=== PATIENT | female | born 1955 | race Caucasian/White ===

== ENCOUNTER → 2017-11-03 | Outpatient (CLI) | payer BC ==
--- NOTE | 2017-11-03 16:35 | BD ---
EXAMINATION TYPE: Axial Bone Density DATE OF EXAM: 11/03/2017 COMPARISON: NONE CLINICAL HISTORY: Height: 60 Weight: 180.1 FRAX RISK QUESTIONS: Alcohol (3 or more units per day): no Family History (Parent hip fracture): no Glucocorticoids (More than 3mos): no (Ex: prednisone, prednisolone, methylprednisolone, dexamethasone, and hydrocortisone). History of Fracture in Adulthood: no Secondary Osteoporosis: 1. Type 1 Diabetes: no 2. Hyperthyroidism: no 3. Menopause before 45: no 4. Malnutrition: no 5. Chronic liver disease: no Rheumatoid Arthritis: no Current Tobacco Use: no RISK FACTORS HISTORY OF: Family History of Osteoporosis: no Active: yes Diet low in dairy products/other sources of calcium: yes Postmenopausal woman: age 48 Lost more than 2 inches in height since high school: no MEDICATIONS: metformin, januvia, lipitor Additional History: EXAM MEASUREMENTS: Bone mineral densitometry was performed using the [employer]. Bone mineral density as measured about the Lumbar spine is: ----- L1-L4(G/cm2): 1.210 T Score Values are as follows: ----- L2: 0.7 ----- L3: 0.4 ----- L4: 0.3 ----- L1-L4: 0.3 Bone mineral density : baseline Bone mineral density about the R hip (g/cm2): 1.098 Bone mineral density about the L hip (g/cm2): 0.986 T Score values are as follows: -----R Neck: 0.4 -----L Neck: -0.4 -----R Total: 1.6 -----L Total: 1.3 Bone mineral density : baseline IMPRESSION: Normal (Values between +1 and -1 indicate normal bone mass). Consider repeating this study in 5 year s or sooner if there is some new clinical indication. NOTE: T-SCORE=SD OF THE YOUNG ADULT MEAN.
--- NOTE | 2017-11-05 12:53 | MM ---
Reason for exam: screening (asymptomatic). Last mammogram was performed 20 years and 10 months ago. History: Patient is postmenopausal. Physical Findings: A clinical breast exam by your physician is recommended on an annual basis and results should be correlated with mammographic findings. MG Screening Mammo w CAD Bilateral CC and MLO view(s) were taken. No prior studies available for comparison. The breast tissue is heterogeneously dense. This may lower the sensitivity of mammography. Two grouped calcifications left breast. Multiple nodular asymmetries right breast. No priors available for comparison. ASSESSMENT: Incomplete: need additional imaging evaluation, BI-RAD 0 RECOMMENDATION: Special view mammogram of both breasts. Ultrasound of the right breast. [facility] will attempt to contact patient to return for supplemental views and ultrasound.
== END | disposition home or self-care (01) ==
LOC: RADMAMWWP 13:40
PROVIDERS: ATTEND Family Medicine
DX: Z12.31 Encounter for screening mammogram for malignant neoplasm of breast (principal); Z78.0 Asymptomatic menopausal state
CPT/HCPCS: 77067; 77080

== ENCOUNTER → 2017-11-06 | Outpatient (CLI) | payer BC ==
--- NOTE | 2017-11-09 11:38 | MM ---
Reason for exam: additional evaluation requested from abnormal screening. Last mammogram was performed less than 1 month ago. History: Patient is postmenopausal. Physical Findings: Nurse did not find any significant physical abnormalities on exam. MG Work Up Mamm w CAD BILAT Bilateral LM view(s) were taken. Spot compression CC and spot compression LM view(s) were taken of the right breast. CC with magnification and ML with magnification view(s) were taken of the left breast. Prior study comparison: November 03, 2017, bilateral MG screening mammo w CAD. January 09, 1997, bilateral special view mammogram. There are two persistent suspicious grouped heterogeneous calcifications in the left breast that do not layer on lateral view. Right areas do not go completely away on spot CC view but not well seen on lateral view. These results were verbally communicated with the patient and result sheet given to the patient on 11/06/17. ASSESSMENT: Suspicious, BI-RAD 4 Probably benign, BI-RAD 3 finding in the right breast. Suspicious, BI-RAD 4 abnormality in the left breast. RECOMMENDATION: Ultrasound of the right breast. Stereotactic core biopsy of the left breast. (2 sites) Called Dr. Patterson with mammographic findings and has scheduled an appointment for the patient for 11/27/17 at 11:[address] Jerry. Biopsy scheduled for 12/03/17 at 8:00. PRELIMINARY REPORT CALLED AND FAXED TO DR. JERRY ON 11/09/17.
--- NOTE | 2017-11-09 11:39 | USB ---
Reason for exam: additional evaluation requested from abnormal screening. History: Patient is postmenopausal. US Breast Workup RT Right complete breast ultrasound includes all four quadrants, the retroareolar region and axilla. Finding demonstrates a 0.5 x 0.3 x 0.4cm oval lesion too small to characterize at 7 o'clock, a 0.5 x 0.4 x 0.5cm oval, cystic lesion at 8 o'clock and a 0.5 x 0.3 x 0.5cm oval, cystic lesion at 10 o'clock. These results were verbally communicated with the patient and result sheet given to the patient on 11/06/17. ASSESSMENT: Probably benign, BI-RAD 3 RECOMMENDATION: Follow-up diagnostic mammogram and ultrasound of the right breast in 6 months.
== END | disposition home or self-care (01) ==
LOC: RADMAMWWP 13:20
PROVIDERS: ATTEND Family Medicine
DX: R92.8 Other abnormal and inconclusive findings on diagnostic imaging of breast (principal)
CPT/HCPCS: 77066

== ENCOUNTER → 2017-11-27 | Outpatient (CLI) | payer BC ==
[2017-11-27 14:06] LABS: HCT 48.7 % (34.0-46.0); HGB 15.7 gm/dL (11.4-16.0); MCH 27.3 pg (25.0-35.0); MCHC 32.2 g/dL (31.0-37.0); MCV 84.8 fL (80.0-100.0); Mean Platelet Volume 10.1; RBC 5.74 m/uL (3.80-5.40); RDW 13.3 % (11.5-15.5); WBC 7.6 k/uL (3.8-10.6)
[2017-11-27 14:12] LABS: INR 1.1 (<1.2); Prothrombin Time 10.8 sec (9.0-12.0)
[2017-11-27 14:43] LABS: Platelet Count 27 k/uL (150-450)
== END | disposition home or self-care (01) ==
LOC: LABWHC1 12:28
PROVIDERS: ATTEND Surgery
DX: R23.3 Spontaneous ecchymoses (principal)
CPT/HCPCS: 36415; 85027; 85610

== ENCOUNTER → 2017-11-27 | Outpatient (CLI) | payer BC ==
[2017-11-27 11:31] VITALS: BP 118/73; PULSE 90; RESP 14; TEMP 98; BMI 34.3
--- NOTE | 2017-11-27 12:00 | P.GSHP ---
History of Present Illness H&P Date: 11/27/17 The patient is a 62-year-old white female who had a routine screening mammogram performed on 94. On that study to group calcifications were noted in the left breast and multiple nodular asymmetric areas were noted in the right breast. She was recommended to have bilateral additional views and these were performed on 97. This was revealed to persistent suspicious grouped heterogeneous calcifications in the left breast which did not layer on the lateral view. In the right breast the areas did not go completely away on spot CC view but were not set well seen on the lateral view, she was therefore recommended to undergo a right breast ultrasound. She underwent a right breast ultrasound on 97. This was felt to be most likely benign and a follow-up diagnostic mammogram and ultrasound of the right breast in 6 months was recommended. However it was recommended she undergo stereotactic core biopsy of the area of concern in the left breast in two sites. The patient does not feel anything of concern in either breast. She has no nipple discharge or changes. She has no history of any trauma to the breast nor any infection in the breast. Family History: father: prostate cancer mother: heart disease Hormonal History: menarche: 6 : 2, 2 children, first at 17, breast fed: yes menopause: 48 BCP: 6 months hormones: none Past surgical history 1. Tonsillectomy 2. tubaligation Past medical history 1. Environmental asthma 2. Diabetic controlled by diet 3. High cholesterol Social History: smoke: none alcohol:none drugs: none - Constitutional Constitutional: Denies chills, Denies fever - EENT Eyes: denies blurred vision, denies pain Ears: deny: decreased hearing, tinnitus Ears, nose, mouth and throat: Denies headache, Denies sore throat - Breasts Breasts: bilateral: as per HPI - Cardiovascular Cardiovascular: Denies chest pain, Denies shortness of breath - Respiratory Respiratory: Denies cough, Denies 7 - Gastrointestinal Comment: GI bleed in 2009 was taking aspirin Gastrointestinal: Denies abdominal pain, Denies diarrhea, Denies nausea, Denies vomiting - Genitourinary (Female) Genitourinary: Denies dysuria, Denies hematuria - Menstruation Menstruation: Reports postmenopausal - Musculoskeletal Musculoskeletal: Denies myalgias - Integumentary Comment: bruising in the past Integumentary: Denies pruritus, Denies rash - Neurological Comment: neuropathy in feet form diabetes Neurological: Denies numbness, Denies weakness - Psychiatric Psychiatric: Denies anxiety, Denies depression - Endocrine Comment: diabetic - Hematologic/Lymphatic Comment: none - Allergic/Immunologic Allergic/Immunologic: Reports seasonal allergies Past Medical History Past Medical History: Asthma, Diabetes Mellitus, Hyperlipidemia History of Any Multi-Drug Resistant Organisms: None Reported Past Surgical History: Tonsillectomy, Tubal Ligation Smoking Status: Never smoker - Past Family History Father Family Medical History: Cancer Additional Family Medical History / Comment(s): prostate Mother Family Medical History: Myocardial Infarction ([place]) Medications and Allergies Home Medications Medication Instructions Recorded Confirmed Type Albuterol Inhaler [Ventolin Hfa 90 mcg INHALATION DIRECTED PRN 11/17/1711/27 History Inhaler] Atorvastatin [Lipitor] 40 mg PO HS 11/17/17 11/27/17 History Fluticasone/Salmeterol [Advair 1 inhalation PO BID 11/17/17 11/27/17 History 250-50 Diskus] metFORMIN HCL 1,000 mg PO BID 11/17/17 11/27/17 History sitaGLIPtin [Januvia] 100 mg PO DAILY 11/17/17 11/27/17 History Allergies Allergy/AdvReac Type Severity Reaction Status Date / Time Penicillins Allergy Severe Rash/Hives Verified 11/27/17 11:18 codeine AdvReac Severe Unknown Verified 11/27/17 11:18 Surgical - Exam Vital Signs Temp Pulse Resp BP Pulse Ox 98.0 F 90 14 118/73 96 11/27/17 11:25 11/27/17 11:25 11/27/17 11:25 11/27/17 11:25 11/27/17 11:25 BMI 34.4 - General obese - Eyes normal ocular movement - ENT no hearing loss, no congestion - Neck no masses, trachea midline - Respiratory normal respiratory effort, clear to auscultation - Cardiovascular Rhythm: regular Heart Sounds: normal: S1, S2 - Abdomen Abdomen: soft, non tender, no guarding, no rigid, no rebound - Integumentary Small nevus left aerolar area - Neurologic no disoriented, no combative - Musculoskeletal normal gait, normal posture - Psychiatric oriented to time, oriented to person, oriented to place, speech is normal, memory intact Breast examination: Right breast: Multi-positional exam no dominant masses or nodules of concern Right axilla: No adenopathy of concern Left breast: small nevus which is dark in the inner area of the aerola approximately 7:00 Multi-positional exam no dominant masses or nodules of concern Left axilla: No adenopathy of concern Results Mammogram and ultrasound reports reviewed Assessment and Plan Assessment: Impression: 1. Radiographic abnormality right and left breast 2. Nevus left periareolar area 3. Diabetes 4. Asthma 5. High cholesterol 6. History of easy bruising Plan: 1. Right breast repeat mammogram and ultrasound in 6 months time 2. Left breast stereotactic core biopsy of 2 areas of concern in the left breast 3. Medical management of medical problems 4. Secondary to the history of easy bruising I will obtain a CBC, PT, and INR Risk and benefits of stereotactic core biopsy were discussed with the patient. The risks include bleeding infection reaction to the anesthetic or the possibility that we would not sample the correct area. The patient understands and wishes to proceed. Alternatives would include watchful waiting and/or open biopsy which is not recommended at this time. Cc: Dr. Baljinder Patterson
== END | disposition home or self-care (01) ==
LOC: WWCWWP 11:10
PROVIDERS: ATTEND Surgery
DX: Z53.9 Procedure and treatment not carried out, unspecified reason (principal)

== ENCOUNTER → 2017-12-25 | Day surgery (SDC) | payer BC ==
[2017-12-25 07:27] VITALS: RESP 16; TEMP 98
--- NOTE | 2017-12-25 08:47 | P.OP ---
Date of Procedure: 12/25/17 Preoperative Diagnosis: Mammographic abnormality microcalcifications left breast, at two sites Postoperative Diagnosis: Same Procedure(s) Performed: Stereotactic core biopsy two sites in the left breast lesion Anesthesia: local Surgeon: Priti Jerry Estimated Blood Loss (ml): 1 Pathology: other (breast tissue) Condition: stable Disposition: same day Indications for Procedure: Suspicious microcalcifications left breast upper outer quadrant area site A Operative Findings: Microcalcifications in specimen Description of Procedure: The patient is a 62-year-old white female who on a mammogram was noted to have 2 areas of microcalcification of concern in the left breast. Site a is the first area of concern and this is located in the upper outer quadrant area. The second area of concern is in the more medial inferior area of the breast. The patient on physical examination had no dominant masses or nodules of concern in the breast a multi-positional exam. The patient was recommended to undergo stereotactic core biopsy of 2 areas of microcalcifications in the left breast. Site A is in the upper outer quadrant area and site B is in the more inferior medial breast. The patient was taken to the stereotactic core room in the area of concern in the left breast in the upper outer quadrant region was addressed initially. This is site A. The patient was placed on the low rad table and the area was identified on a pulp house supervisor film. Following this the stereo pair was identified. The approach to target this area was cranial caudal from above. The breast was prepped using Betadine. 10 mL of 1% lidocaine was used to anesthetize the area of concern. A 9-gauge vacuum-assisted rotating core biopsy needle was utilized. The needle was driven to the correct coordinates and pre-and post- fire films were obtained. Slight correction was made in the X axis for the location of the needle in the post fire films. Approximately 6 cores were obtained. Radiograph of the specimen revealed that the area of concern had been sampled. A top hat secure gino marker was placed. Location was confirmed radiographically. Site B was then approached. The approach used was a cranial caudal from below. Site B which was in the left breast in the more medial lower breast was approached from a cranial caudal from below approach. The lesion was identified on the pulp house supervisor film. Following this stereo pair was obtained. The lesion was targeted. The breast was prepped using Betadine. 10 mL of 1% lidocaine was used to anesthetize the breast. The needle was driven to the correct coordinates. The needle was a 9-gauge vacuum-assisted rotating core biopsy needle. A prefire film was obtained. Post-fire film was then obtained. 3 core biopsies were obtained from the 12 o'clock position. Radiograph of the specimen revealed the calcifications of concern had been sampled. A tri- gino marker was placed. The patient tolerated the procedure in stable condition with no immediate complications. The specimens were sent to pathology clearly labeled site a which was in the upper outer aspect of the breast, and site B which was in the more medial inferior aspect of the breast. The patient will follow-up with Dr. Patterson in 1 week.
[2017-12-25 09:02] VITALS: BP 139/83; PULSE 106
--- NOTE | 2017-12-25 09:58 | MM ---
Stereotactic core biopsy left breast. HISTORY: Microcalcifications 2 sites. The calcifications in question within the left breast were targeted by the undersigned. The examination was performed by the surgeon. Specimen radiograph demonstrates numerous calcifications within the specimens submitted. Post procedural mammogram demonstrates appropriate deployment of radiopaque clip markers. The patient tolerated the procedure well and left the department in stable condition. Pathology results are pending. IMPRESSION: Successful stereotactic core biopsy 2 sites left breast with pathology results pending. Pathology Results: Benign A. LEFT BREAST SITE A, NEEDLE CORE BIOPSIES: Minute fibroadenoma fragments with foci of calcification. B. LEFT BREAST SITE B, NEEDLE CORE BIOPSIES: Minute fibroadenoma fragments with foci of calcification. Recommendation Follow up mammogram of the left breast in 6 months. MTDD
--- NOTE | 2017-12-29 13:58 | MM ---
MG Stereo VAD BX LT Radiologist: Anastacio Calixto M.D. Radiologis Surgeon: Catherine Jerry M.D. Stereotactic core biopsy left breast. HISTORY: Microcalcifications 2 sites. The calcifications in question within the left breast were targeted by the undersigned. The examination was performed by the surgeon. Specimen radiograph demonstrates numerous calcifications within the specimens submitted. Post procedural mammogram demonstrates appropriate deployment of radiopaque clip markers. The patient tolerated the procedure well and left the department in stable condition. Pathology results are pending. IMPRESSION: Successful stereotactic core biopsy 2 sites left breast with pathology results pending. Pathology Results: Benign A. LEFT BREAST SITE A, NEEDLE CORE BIOPSIES: Minute fibroadenoma fragments with foci of calcification. B. LEFT BREAST SITE B, NEEDLE CORE BIOPSIES: Minute fibroadenoma fragments with foci of calcification. RECOMMENDATION: Follow-up diagnostic mammogram of the left breast in 6 months. MTDD
== END ==
LOC: RADMAMWWP 07:03
PROVIDERS: ATTEND Surgery
DX: D24.2 Benign neoplasm of left breast (principal); R92.1 Mammographic calcification found on diagnostic imaging of breast; R92.8 Other abnormal and inconclusive findings on diagnostic imaging of breast; Z88.5 Allergy status to narcotic agent; Z88.0 Allergy status to penicillin; Z88.8 Allergy status to other drugs, medicaments and biological substances
CPT/HCPCS: 88305; 19081; 19082; A4648; J2001

== ENCOUNTER → 2017-12-31 | Outpatient (CLI) | payer BC ==
[2017-12-31 13:32] VITALS: BP 129/80; PULSE 92; RESP 18; TEMP 98.1; BMI 33.7
--- NOTE | 2017-12-31 13:39 | P.PN ---
Subjective Progress Note Date: 12/31/17 The patient is a 62-year-old white female status post stereotactic core biopsy of 2 areas of concern in the left breast. Both areas revealed fibroadenoma fragments with foci of calcification. The patient has some slight ecchymosis at the site of the biopsies and had some reaction to the tape otherwise no complaints. Objective - Vital Signs Vital signs: Vital Signs Temp 98.1 F 12/31/17 13:26 Pulse 92 12/31/17 13:26 Resp 18 12/31/17 13:26 BP 129/80 12/31/17 13:26 Pulse Ox 95 12/31/17 13:26 Intake & Output 12/30/17 12/31/17 12/31/17 18:59 06:59 18:59 Weight 78.471 kg - Constitutional General appearance: Present: obese - EENT Eyes: Present: EOMI ENT: Present: hearing grossly normal - Respiratory Respiratory: bilateral: CTA - Cardiovascular Rhythm: regular Heart sounds: normal: S1, S2 - Gastrointestinal General gastrointestinal: Present: soft - Integumentary Integumentary Comment(s): Examination of the left breast reveals some mild ecchymosis of both biopsy sites There is no evidence of any infection Small hematoma at the upper biopsy site which is less than a centimeter in size Assessment and Plan Assessment: Impression: 1. 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 Close surveillance of mammographic finding in the right breast with 6 month mammogram Plan: 1. Bilateral breast mammogram and physician exam in 6 months time Cc: Dr. Baljinder Patterson
== END | disposition home or self-care (01) ==
LOC: WWCWWP 12:42
PROVIDERS: ATTEND Surgery
DX: Z53.9 Procedure and treatment not carried out, unspecified reason (principal)

== ENCOUNTER → 2018-03-12 | Outpatient (CLI) | payer BC, MEDICARE ==
--- NOTE | 2018-03-12 13:21 | XR ---
EXAMINATION TYPE: XR chest 2V DATE OF EXAM: 03/12/2018 COMPARISON: NONE HISTORY: Persistent cough, pulmonary edema TECHNIQUE: Frontal and lateral views of the chest are obtained. FINDINGS: Patient is rotated. There is bronchial wall thickening. There is no focal air space opacity , pleural effusion, or pneumothorax seen. The cardiac silhouette size is within normal limits. The osseous structures are intact. IMPRESSION: Correlate for bronchitis, reactive airways disease, follow-up as indicated.
== END ==
LOC: RADXRMAIN 10:27
PROVIDERS: ATTEND Family Medicine
DX: R06.00 Dyspnea, unspecified (principal)
CPT/HCPCS: 71046

== ENCOUNTER → 2018-03-23 | Outpatient (CLI) | payer MEDICARE ==
--- NOTE | 2018-03-23 09:56 | ECHOF ---
Referral Reason:R00.2 Palpitations MEASUREMENTS -------- HEIGHT: 152.4 cm WEIGHT: 83.9 kg BP: RVIDd: 2.5 cm (< 3.3) IVSd: 0.9 cm (0.6 - 1.1) LVIDd: 4.3 cm (3.9 - 5.3) LVPWd: 1.1 cm (0.6 - 1.1) IVSs: 1.3 cm LVIDs: 3.0 cm LVPWs: 1.4 cm LA Diam: 4.0 cm (2.7 - 3.8) LAESV Index (A-L): 28.91 ml/m Ao Diam: 2.7 cm (2.0 - 3.7) AV Cusp: 1.9 cm (1.5 - 2.6) LA Diam: 3.8 cm (2.7 - 3.8) MV EXCURSION: 18.395 mm (> 18.000) MV EF SLOPE: 113 mm/s (70 - 150) EPSS: 0.3 cm MV E Helio: 0.52 m/s MV DecT: 118 ms MV A Helio: 0.63 m/s MV E/A Ratio: 0.83 RAP: 5.00 mmHg RVSP: 15.84 mmHg FINDINGS -------- Sinus rhythm. This was a technically adequate study. LV size, wall thickness and systolic function are normal, with an EF greater than 55%. The left shaka tricular size is normal. The right ventricle is normal in size. The left atrial size is normal. The right atrial size is normal. The aortic valve is trileaflet, and appears structurally normal. No aortic stenosis or regurgitation. Mild mitral annular calcification present. Mild mitral regurgitation is present. Mild tricuspid regurgitation present. There is no evidence of pulmonary hypertension. The right v entricular systolic pressure, as measured by Doppler, is 15.84mmHg. There is no pulmonic regurgitation present. The aortic root size is normal. There is no pericardial effusion. CONCLUSIONS -------- 1. LV size, wall thickness and systolic function are normal, with an EF greater than 55%. 2. The left ventricular size is normal. 3. The right ventricle is normal in size. 4. The left atrial size is normal. 5. The right atrial size is normal. 6. The aortic valve is trileaflet, and appears structurally normal. No aortic stenosis or regurgitati on. 7. Mild mitral annular calcification present. 8. Mild mitral regurgitation is present. 9. Mild tricuspid regurgitation present. 10. There is no evidence of pulmonary hypertension. 11. The right ventricular systolic pressure, as measured by Doppler, is 15.84mmHg. 12. There is no pulmonic regurgitation present. 13. The aortic root size is normal. 14. There is no pericardial effusion. [employer] PROFESSOR: Evelyn Jaime RDCS
--- NOTE | 2018-03-23 11:41 | ECHOS ---
STRESS ECHOCARDIOGRAM INDICATIONS: Palpitations. MEDICATIONS: Metformin, Atorvastatin, Januvia. BASELINE HEART RATE: 83 BASELINE BLOOD PRESSURE: 124/61 MAXIMUM HEART RATE: 162 MAXIMUM BLOOD PRESSURE: 190/80 85% MPHR: 132 100% MPHR: 155 METS: 5.8 MAXIMUM STAGE REACHED: I TOTAL EXERCISE TIME: 4:19 CLINICAL INFORMATION: Baseline heart rate 83 beats per minute. Baseline blood pressure 124/61 mmHg. Baseline 12-lead ECG shows sinus rhythm with nonspecific ST-T abnormalities of 0.5 mm in the lateral precordial leads. The patient exercised on a Carlos protocol for only 4 minutes 19 seconds achieving a peak heart rate of 162 beats per minute. No chest pain noted. Normal blood pressure response and there was an upsloping 1-1.[address] depression at peak exercise. Occasional PVCs noted. Baseline 2D echo images were suboptimal, therefore Definity contrast was used to delineate the endocardial borders. There was augmentation of overall LV contractility without developing any wall motion abnormalities. At recovery, regional global LV systolic function remained normal. IMPRESSION: 1. Low exercise capacity. 2. No borderline ECG abnormalities. 3. No wall motion abnormalities noted on the stress echo images. MMODL / IJN: [id number] /
== END | disposition home or self-care (01) ==
LOC: RADECHMAIN 08:22
PROVIDERS: ATTEND Family Medicine
DX: I08.1 Rheumatic disorders of both mitral and tricuspid valves (principal)
CPT/HCPCS: 93225; 93226; 93306; C8930; Q9950; 93351

== ENCOUNTER 2018-07-06 06:36 | Day surgery (SDC) | payer BC, MEDICARE ==
[2018-07-02 10:59] VITALS: BMI 37.1
[~2018-07-06 06:36] MED LIST: LACTATED RINGERS 1,000 ML IV SCH
[2018-07-06 06:59] VITALS: RESP 18; TEMP 98.1
[2018-07-06] MEDS ORDERED: LACTATED RINGERS 1,000 ML IV ONE (06:59)
[2018-07-06] MEDS ORDERED: LIDOCAINE 1% 20 ML VIAL (10MG/ML) FOR IV START INTRADERMA ONE (06:59)
[2018-07-06 07:09] LABS: Glucose,Whole Blood 171 mg/dL (75-99)
[2018-07-06] MEDS ORDERED: PROPOFOL 10 MG/ML 20 ML VIAL IV ONE (07:55)
[2018-07-06 08:51] VITALS: BP 148/75; PULSE 98
--- NOTE | 2018-07-06 10:54 | PCN ---
PROCEDURE NOTE DATE OF SERVICE: 07/06/2018 PROCEDURE: Attempted procedure is bone marrow aspirate and biopsy. DESCRIPTION OF PROCEDURE: After obtaining consent from the patient, anesthesia was performed by anesthesia team. However, the patient had hyperreactive airway, so the procedure was canceled and the patient woke up and she was doing well and she was deferred at a later time. will be done under local. MMODL / IJN: [id number] /
== END 2018-07-06 09:05 | disposition home or self-care (01) ==
LOC: OR 06:36
PROVIDERS: ATTEND Internal Medicine Hematology & Oncology
DX: D69.6 Thrombocytopenia, unspecified (principal); Z53.09 Procedure and treatment not carried out because of other contraindication; J45.998 Other asthma; E78.5 Hyperlipidemia, unspecified; E11.3599 Type 2 diabetes mellitus with proliferative diabetic retinopathy without macular edema, unspecified eye; E03.9 Hypothyroidism, unspecified; Z98.51 Tubal ligation status; Z98.890 Other specified postprocedural states; Z80.42 Family history of malignant neoplasm of prostate; Z88.5 Allergy status to narcotic agent; Z88.0 Allergy status to penicillin; Z91.048 Other nonmedicinal substance allergy status; Z79.84 Long term (current) use of oral hypoglycemic drugs; Z79.890 Hormone replacement therapy; Z79.899 Other long term (current) drug therapy
CPT/HCPCS: 38221; J2704

== ENCOUNTER → 2019-04-08 | Outpatient (CLI) | payer MEDICARE ==
--- NOTE | 2019-04-12 10:20 | MM ---
Reason for exam: screening (asymptomatic). Last mammogram was performed 1 year and 5 months ago. History: Patient is postmenopausal. Benign MG stereo VAD BX addl LT of the left breast, December 25, 2017. Benign MG stereo VAD BX LT of the left breast, December 25, 2017. Physical Findings: A clinical breast exam by your physician is recommended on an annual basis and results should be correlated with mammographic findings. MG 3D Screening Mammo W/Cad Bilateral CC and MLO view(s) were taken. Prior study comparison: November 06, 2017, bilateral MG work up mamm w CAD BILAT. November 03, 2017, bilateral MG screening mammo w CAD. The breast tissue is heterogeneously dense. This may lower the sensitivity of mammography. Finding: There are increased, fine, grouped/clustered calcifications in the right breast. Previous mammotome biopsy in the left breast. New finding since November 06, 2017 and November 03, 2017. ASSESSMENT: Incomplete: need additional imaging evaluation, BI-RAD 0 RECOMMENDATION: Special view mammogram of the right breast. If lesion persists on supplemental views, image directed ultrasound is recommended. [facility] will attempt to contact patient to return for supplemental views and ultrasound if indicated.
== END | disposition home or self-care (01) ==
LOC: RADMAMWWP 15:37
PROVIDERS: ATTEND Surgery
DX: Z12.31 Encounter for screening mammogram for malignant neoplasm of breast (principal)
CPT/HCPCS: 77063; 77067

== ENCOUNTER → 2019-04-21 | Outpatient (CLI) | payer MEDICARE ==
--- NOTE | 2019-04-26 11:45 | MM ---
Reason for exam: additional evaluation requested from abnormal screening. Last mammogram was performed less than 1 month ago. History: Patient is postmenopausal. Benign MG stereo VAD BX addl LT of the left breast, December 25, 2017. Benign MG stereo VAD BX LT of the left breast, December 25, 2017. Physical Findings: Nurse did not find any significant physical abnormalities on exam. MG 3D Work Up W/Cad RT CC with magnification, ML with magnification, and ML view(s) were taken of the right breast. Prior study comparison: April 08, 2019, bilateral MG 3d screening mammo w/cad. November 06, 2017, bilateral MG work up mamm w CAD BILAT. The breast tissue is heterogeneously dense. This may lower the sensitivity of mammography. There are increased suspicious grouped, round, heterogeneous calcification in the right breast upper outer quadrant middle position. This finding is changed when compared with previous exams. These results were verbally communicated with the patient and result sheet given to the patient on 04/21/19. ASSESSMENT: Suspicious, BI-RAD 4 RECOMMENDATION: Stereotactic core biopsy of the right breast. Called office with mammographic findings and has scheduled an appointment for the patient for 04/28/19 at 1:[address] Jerry. PRELIMINARY REPORT CALLED AND FAXED TO DR. JERRY ON 04/21/19.
== END | disposition home or self-care (01) ==
LOC: RADMAMWWP 10:23
PROVIDERS: ATTEND Surgery
DX: R92.8 Other abnormal and inconclusive findings on diagnostic imaging of breast (principal)
CPT/HCPCS: 77065; G0279; 77061

== ENCOUNTER → 2019-11-10 | Outpatient (CLI) | payer MEDICARE ==
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
== END | disposition home or self-care (01) ==
LOC: RADUSWWP 09:49
PROVIDERS: ATTEND Family Medicine
DX: R60.0 Localized edema (principal)
CPT/HCPCS: 93970

== ENCOUNTER → 2020-09-21 | Outpatient (CLI) | payer MEDICARE ==
[2020-09-21 17:27] LABS: Basophils # (A) 0.03 X 10*3/uL (0.00-0.10); Basophils % (A) 0.3 %; Eosinophils # (A) 0.02 X 10*3/uL (0.04-0.35); Eosinophils % (A) 0.2 %; HCT 44.1 % (37.2-46.3); HGB 14.2 g/dL (12.0-15.0); Lymphocytes % (A) 17.3 %; MCH 27.6 pg (27.0-32.0); MCHC 32.2 g/dL (32.0-37.0); MCV 85.6 fL (80.0-97.0); Monocytes % (A) 6.9 %; Neutrophils % (A) 74.3 %; Platelet Count 51 X 10*3/uL (140-440); RBC 5.15 X 10*6/uL (4.10-5.20); RDW 13.9 % (11.5-14.5); WBC 11.57 X 10*3/uL (4.50-10.00)
[2020-09-21 21:17] LABS: African American GFR (CKD) 88.4 (60.0-200.0); Albumin 4.7 g/dL (3.80-4.90); Albumin/Globulin Ratio 1.62 (1.60-3.17); Anion Gap 14.4 mmol/L (4.00-12.00); BUN/Creat Ratio 27.5 Ratio (12.00-20.00); Calcium 9.6 mg/dL (8.7-10.3); Carbon Dioxide 20.6 mmol/L (21.6-31.8); Chol/HDL Ratio 3.72; Globulin 2.9 g/dL (1.6-3.3); LDL Cholesterol,Calculated 141.2 mg/dL (0.0-131.0); Non-African American GFR(CKD) 76.3 (60.0-200.0); Potassium 4.3 mmol/L (3.5-5.5); Total Bilirubin 0.6 mg/dL (0.2-1.2); Total Protein 7.6 g/dL (6.2-8.2); VLDL Calculation 35.8 mg/dL (5.00-40.00)
== END | disposition home or self-care (01) ==
LOC: LABWHC1 07:38
PROVIDERS: ATTEND Family Medicine
DX: E11.9 Type 2 diabetes mellitus without complications (principal); D69.6 Thrombocytopenia, unspecified
CPT/HCPCS: 36415; 80053; 80061; 85025

== ENCOUNTER → 2022-06-25 | Outpatient (CLI) | payer MEDICARE ==
[2022-06-25 09:57] LABS: Anisocytosis Slight; Basophils % (A) 0 %; Eosinophils # (A) 0.2 k/uL (0-0.7); Eosinophils % (A) 3 %; HCT 34.1 % (34.0-46.0); HGB 11.1 gm/dL (11.4-16.0); Lymphocytes # (A) 0.9 k/uL (1.0-4.8); Lymphocytes % (A) 17 %; MCH 27.7 pg (25.0-35.0); MCHC 32.5 g/dL (31.0-37.0); MCV 85.3 fL (80.0-100.0); Mean Platelet Volume 9.1; Monocytes # (A) 0.3 k/uL (0-1.0); Monocytes % (A) 7 %; Neutrophils # (A) 3.6 k/uL (1.3-7.7); Neutrophils % (A) 70 %; RDW 16.5 % (11.5-15.5); WBC 5.2 k/uL (3.8-10.6)
[2022-06-25 14:54] LABS: Platelet Count 27 k/uL (150-450)
== END | disposition home or self-care (01) ==
LOC: LABWHC1 08:26
PROVIDERS: ATTEND Family Medicine
DX: E11.9 Type 2 diabetes mellitus without complications (principal); E03.9 Hypothyroidism, unspecified
CPT/HCPCS: 36415; 83036; 85025

== ENCOUNTER → 2022-10-29 | Outpatient (CLI) | payer MEDICARE ==
[2022-10-29 15:37] LABS: ALT 10 U/L (8-44); AST 19 U/L (13-35); Albumin 4.3 d/dL (3.8-4.9); Albumin/Globulin Ratio 1.65 Ratio (1.60-3.17); Alkaline Phosphatase 83 U/L (41-126); BUN/Creat Ratio 28.75 Ratio (12.00-20.00); Calcium 9.2 mg/dL (8.7-10.3); Chloride 102 mmol/L (96-109); Chol/HDL Ratio 5.32 Ratio; Globulin 2.6 d/dL (1.6-3.3); Glucose 159 mg/dL (70-110); LDL Cholesterol,Calculated 173.4 mg/dL (0.0-131.0); Potassium 4.4 mmol/L (3.5-5.5); Sodium 136 mmol/L (135-145); T4, Free (Free Thyroxine) 1.54 ng/dL (0.80-1.80); Total Bilirubin 0.3 mg/dL (0.3-1.2); Total Protein 6.9 d/dL (6.2-8.2)
[2022-10-29 16:24] LABS: Basophils # (A) 0.05 X 10*3/uL (0.00-0.10); Basophils % (A) 0.7 %; Elliptocytes 2+; Eosinophils # (A) 0.37 X 10*3/uL (0.04-0.35); Eosinophils % (A) 5.4 %; HGB 11.1 d/dL (12.0-15.0); Immature Platelet Fraction 28.1 % (1.1-6.1); Lymphocytes # (A) 1.04 X 10*3/uL (0.90-5.00); Lymphocytes % (A) 15.2 %; MCH 28.2 pg (27.0-32.0); MCHC 31.7 d/dL (32.0-37.0); MCV 89.1 FL (80.0-97.0); Monocytes # (A) 0.65 X 10*3/uL (0.20-1.00); Monocytes % (A) 9.5 %; NRBC Per 100 WBC 0.02 X 10*3/uL (0.00-0.01); Neutrophils # (A) 4.67 X 10*3/uL (1.80-7.70); Neutrophils % (A) 68.2 %; Platelet Count 31 X 10*3/uL (140-440); RBC 3.93 X 10*6/uL (4.10-5.20); RDW 15.6 % (11.5-14.5); WBC 6.85 X 10*3/uL (4.50-10.00)
== END | disposition home or self-care (01) ==
LOC: LABWHC1 08:47
PROVIDERS: ATTEND Family Medicine
DX: E11.9 Type 2 diabetes mellitus without complications (principal)
CPT/HCPCS: 36415; 80053; 80061; 83036; 84439; 84443; 85025

== ENCOUNTER → 2022-12-08 | Outpatient (CLI) | payer MEDICARE ==
[2022-12-08 16:11] LABS: HCT 31.8 % (37.2-46.3); HGB 10.4 d/dL (12.0-15.0); Immature Platelet Fraction 26.2 % (1.1-6.1); MCH 28.3 pg (27.0-32.0); MCHC 32.7 d/dL (32.0-37.0); MCV 86.4 FL (80.0-97.0); NRBC Per 100 WBC 0.02 X 10*3/uL (0.00-0.01); Platelet Count 30 X 10*3/uL (140-440); RBC 3.68 X 10*6/uL (4.10-5.20); RDW 15.5 % (11.5-14.5); WBC 7.19 X 10*3/uL (4.50-10.00)
== END | disposition home or self-care (01) ==
LOC: LABPAT 11:29
PROVIDERS: ATTEND Dentist Oral and Maxillofacial Surgery
DX: D69.6 Thrombocytopenia, unspecified (principal)
CPT/HCPCS: 85027; 86850; 86900; 86901

== ENCOUNTER → 2024-03-04 | Outpatient (CLI) | payer MEDICARE ==
--- NOTE | 2024-03-04 21:32 | US ---
EXAMINATION TYPE: US abdomen complete DATE OF EXAM: 03/04/2024 COMPARISON: NONE CLINICAL INDICATION: Female, 69 years old with history of R10.9 ABD PAIN; pain TECHNIQUE: Grayscale and color Doppler imaging of the abdomen was performed. FINDINGS: EXAM MEASUREMENTS: Liver Length: 16.1 cm Gallbladder Wall: .2 cm CBD: .3 cm, color Doppler imaging was utilized to isolate the common bile duct for measurement. Spleen: 10 cm Right Kidney: 9.1 x 3.9 x 4.3 cm Left Kidney: 9.9 x 4.6 x 4.2 cm [employer] NOTES: Pancreas: Tail obscured by overlying bowel gas Liver: Increased attenuation Gallbladder: No stones seen Evidence for sonographic Valverde's sign: No CBD: wnl Spleen: wnl Right Kidney: wnl Left Kidney: wnl Upper IVC: wnl Abd Aorta: wnl The liver is heterogeneously hyperechoic. This limits evaluation for focal masses. Finding likely on the basis of diffuse fatty infiltration The intrahepatic portion of the IVC and visualized abdominal aorta are within normal limits. There is no evidence of cholelithiasis. Common bile duct is unrema rkable. The visualized portions of the pancreas are homogenous. The spleen is unremarkable. Kidney s are symmetric and free of hydronephrosis. No renal lesions are seen. IMPRESSION: No acute findings are seen. [facility], , 03/04/2024 9:30 PM
== END | disposition home or self-care (01) ==
LOC: RADUSWWP 07:28
PROVIDERS: ATTEND Internal Medicine Hematology & Oncology
DX: D69.3 Immune thrombocytopenic purpura (principal); E03.9 Hypothyroidism, unspecified; D64.9 Anemia, unspecified; E11.9 Type 2 diabetes mellitus without complications; R10.9 Unspecified abdominal pain
CPT/HCPCS: 76700

== ENCOUNTER 2024-06-21 06:39 | Day surgery (SDC) | payer MEDICARE ==
[~2024-06-21 06:39] MED LIST changes: -LACTATED RINGERS 1,000 ML IV SCH; +LIDOCAINE 1% (10MG/ML) FOR IV START INTRADERMA PRN
[2024-06-21] MEDS ORDERED: ONDANSETRON 4 MG/2 ML VIAL IVP PRN (07:00)
[2024-06-21 07:21] VITALS: TEMP 97
[2024-06-21] MEDS: LACTATED RINGERS 1,000 ML IV ONE (07:22)
[2024-06-21] MEDS: LACTATED RINGERS 1,000 ML IV SCH (07:23)
[2024-06-21 07:29] LABS: Glucose,Whole Blood 211 mg/dL (70-110)
[2024-06-21] MEDS: INSULIN LISPRO (HumaLOG) 100 UNIT/ML 10 mL VL SQ ONE (07:33)
[2024-06-21] MEDS ORDERED: LABETALOL 5 MG/ML VIAL MDV ONE (07:39)
[2024-06-21] MEDS ORDERED: LIDOCAINE 1% INJ 10MG/ML (20 ML MDV) ONE (07:39)
[2024-06-21] MEDS ORDERED: PROPOFOL 10 MG/ML 20 ML VIAL IV ONE (07:39)
--- NOTE | 2024-06-21 07:46 | P.GSHP ---
History of Present Illness H&P Date: 06/21/24 Chief Complaint: Epigastric pain, colon cancer screening 69-year-old female here for upper and lower endoscopy. She has never had a colonoscopy. Due for screening purposes. No bowel complaints. Patient with intermittent epigastric stabbing discomforts. Past Medical History Past Medical History: Asthma, Diabetes Mellitus, GERD/Reflux, Hyperlipidemia, Mitral Valve Prolapse (MVP), Thyroid Disorder Additional Past Medical History / Comment(s): patient states that she has a "non-functioning gallbladder" is asymptomatic so surgeon reccommended that she not have cholecystectomy unless she has issues, low platelets & bruising, frequent urinary incontinence w/coughing, itp/thrombocytopenia, seasonal asthma, History of Any Multi-Drug Resistant Organisms: None Reported Past Surgical History: Tonsillectomy, Tubal Ligation Additional Past Surgical History / Comment(s): tonsillectomy at age 11, tubal ligation (1984) edental surgery, bone marrow bx Past Anesthesia/Blood Transfusion Reactions: No Reported Reaction Additional Past Anesthesia/Blood Transfusion Reaction / Comment(s): had bone bx cancelled due to intense coughing while under anesthesia from asthma attack Smoking Status: Never smoker - Past Family History Mother Family Medical History: Coronary Artery Disease (CAD), Diabetes Mellitus Father Family Medical History: Cancer Additional Family Medical History / Comment(s): prostate cancer Brother(s) Family Medical History: Diabetes Mellitus Sister(s) Family Medical History: Diabetes Mellitus Medications and Allergies Home Medications Medication Instructions Recorded Confirmed Type metFORMIN HCL [Glucophage] 1,000 mg PO BID 11/17/17 06/21/24 History sitaGLIPtin [Januvia] 100 mg PO 1500 11/17/17 06/21/24 History Levothyroxine Sodium [Synthroid] 75 mcg PO DAILY 04/28/19 06/21/24 History Daptolet (Unk) 40 mg PO BID 06/14/24 06/21/24 History Allergies Allergy/AdvReac Type Severity Reaction Status Date / Time Penicillins Allergy Severe Rash/Hives Verified 06/21/24 06:57 codeine AdvReac Severe Unknown Verified 06/21/24 06:57 adhesive tape AdvReac Rash/Hives Verified 06/21/24 06:57 stevioside [From Stevia] AdvReac Wheezing Verified 06/21/24 06:57 Surgical - Exam Vital Signs Temp Pulse Resp BP Pulse Ox 97 F L 104 H 18 207/84 96 06/21/24 07:00 06/21/24 07:00 06/21/24 07:00 06/21/24 07:00 06/21/24 07:00 Physical exam: General: Well-developed, well-nourished HEENT: Normocephalic, sclerae nonicteric Abdomen: Nontender, nondistended Extremities: No edema Neuro: Alert and oriented Results - Labs Abnormal Lab Results - Last 24 Hours (Table) 06/21/24 Range/Units 07:17 POC Glucose (mg/dL) 211 H (70-110) mg/dL Assessment and Plan (1) Epigastric pain Narrative/Plan: Will proceed with upper and lower endoscopy Current Visit: Yes Status: Acute Code(s): R10.13 - EPIGASTRIC PAIN SNOMED Code(s): 05849816
--- NOTE | 2024-06-21 08:05 | P.PCN ---
Date of Procedure: 06/21/24 Procedure(s) Performed: PREOPERATIVE DIAGNOSIS: Epigastric pain, colon cancer screening POSTOPERATIVE DIAGNOSIS: Gastritis with erosions, hiatal hernia, distal esophagitis with early stricture formation, diverticulosis, hepatic flexure polyp PROCEDURE: 1. EGD with biopsy 2. Colonoscopy with snare polypectomy ANESTHESIA: MAC SURGEON: Bishnu Mcdonnell M.D. SPECIMENS: Antrum, GE junction, polyp ENDOSCOPIC PROCEDURE: The patient was on the endoscopy table in the left decubitus position. The Olympus gastroscope was inserted into the oropharynx and passed under direct visualization to the region of the third portion of the duodenum. From that point the scope was slowly withdrawn inspecting all surfaces carefully. There were no neoplastic inflammatory or polypoid lesions throughout the duodenum. The pylorus was widely patent. The stomach was carefully inspected. There was gastritis present in the antral region. There were multiple small erosions here. Biopsies were taken of that area. Retroflexion revealed a small to medium sized hiatal hernia. The GE junction was present 2 cm above the diaphragmatic hiatus. There was mild circumferential inflammatory changes there. There was slight narrowing at the GE junction itself consistent with an early Schatzki's ring. A biopsy of the GE junction took place. There was no inflammatory changes proximal to the GE junction and the remainder the esophagus appeared normal. The patient was kept on the endoscopy table in the left decubitus position. The Olympus colonoscope was inserted into the anus and passed under direct visualization to the base of the cecum. The appendiceal orifice was visualized. From that point the scope was slowly withdrawn inspecting all surfaces carefully. There were no neoplastic inflammatory or polypoid lesions throughout the cecum and ascending colon. At the hepatic flexure there was a small polyp that was noted and removed using a snare with cautery technique. The remainder of the transverse descending sigmoid and rectum was normal with the exception of mild scattered diverticulosis Digital rectal examination was normal. The patient was taken to the recovery room in stable condition per anesthesia guidelines. RECOMMENDATIONS: Await biopsy results. Begin antiacid therapy. Will contact patient with biopsy findings.
[2024-06-21 08:19] LABS: Glucose,Whole Blood 195 mg/dL (70-110)
[2024-06-21 08:38] VITALS: BP 127/73; PULSE 78; RESP 18
== END 2024-06-21 08:55 | disposition home or self-care (01) ==
LOC: ORWHC2ENDO 06:39
PROVIDERS: ATTEND Surgery
DX: Z12.11 Encounter for screening for malignant neoplasm of colon (principal); K21.00 Gastro-esophageal reflux disease with esophagitis, without bleeding; K31.9 Disease of stomach and duodenum, unspecified; D12.3 Benign neoplasm of transverse colon; K44.9 Diaphragmatic hernia without obstruction or gangrene; K57.30 Diverticulosis of large intestine without perforation or abscess without bleeding; K29.70 Gastritis, unspecified, without bleeding; K22.2 Esophageal obstruction; E11.9 Type 2 diabetes mellitus without complications; E78.5 Hyperlipidemia, unspecified; I34.1 Nonrheumatic mitral (valve) prolapse; Z79.84 Long term (current) use of oral hypoglycemic drugs; Z79.890 Hormone replacement therapy; Z88.0 Allergy status to penicillin; Z88.5 Allergy status to narcotic agent
CPT/HCPCS: 45385; 43239; J2003; J2704; J1920; 88305

== ENCOUNTER → 2024-08-11 | Outpatient (CLI) | payer MEDICARE ==
[2024-08-11 13:57] LABS: African American GFR (CKD) 59 (>60 ml/min/1.73 sqM); Blood Urea Nitrogen 27 mg/dL (7-17); Non-African American GFR(CKD) 51 (>60 ml/min/1.73 sqM)
--- NOTE | 2024-08-11 15:33 | CT ---
EXAMINATION TYPE: CT abdomen pelvis w con DATE OF EXAM: 08/11/2024 COMPARISON: None CLINICAL INDICATION: Female, 69 years old with history of R10.12 ABD PAIN; PHH, Left sided abdominal pain under left breast, stabbing feeling when bending over x6 months TECHNIQUE: Performed with Oral Contrast and with IV Contrast, patient injected with 80ml mL of Isovue 300. CT DLP: [address] CTDI: mGy Automated exposure control for dose reduction was used. FINDINGS: The lung bases are clear. There is a small hiatal hernia. The gallbladder is normal without distention, wall thickening, pericholecystic fluid or gallstones. T here is no biliary ductal dilatation. There is no focal mass or organomegaly involving the liver, pancreas, spleen or adrenal glands. There is no solid renal mass or hydronephrosis and there is homogeneous contrast enhancement of the r enal parenchyma. The caliber the abdominal aorta is normal is no retroperitoneal adenopathy or hemorr shaheen. The bowel loops are normal in caliber and there is no evidence of dilatation or obstruction. No infla mmatory changes are identified in the bowel wall or mesentery. There is no free intraperitoneal air or fluid. There are calcified intrauterine fibroids. There is a 3.8 cm solid mass adjacent to the right aspect of the uterus most likely representing an exophytic uterine fibroid. The osseous structures and soft tissues are intact. IMPRESSION: 1. Small hiatal hernia. 2. Uterine fibroids. 3. No acute changes within the abdomen or pelvis. [facility], , 08/11/2024 3:31 PM
== END | disposition home or self-care (01) ==
LOC: RADCTMAIN 13:09
PROVIDERS: ATTEND Internal Medicine Hematology & Oncology
DX: K44.9 Diaphragmatic hernia without obstruction or gangrene (principal); D25.9 Leiomyoma of uterus, unspecified; D69.3 Immune thrombocytopenic purpura; D64.9 Anemia, unspecified; E11.9 Type 2 diabetes mellitus without complications; E78.5 Hyperlipidemia, unspecified; Z71.3 Dietary counseling and surveillance
CPT/HCPCS: 82565; 84520; 74177; 36415; Q9967